=== PATIENT | male | born 1955 | race Caucasian/White ===

== ENCOUNTER 2018-05-18 21:15 | Emergency (ER) | payer MEDICAID, OTHER ==
[~2018-05-18] VITALS: Ht 182.9 cm; Wt 73.0 kg
[2018-05-18 21:26] VITALS: BP 140/77
--- NOTE | 2018-05-18 21:31 | NUR ---
BIB FAMILY. COMP OF "HAVING L SIDE FACE PAIN, FELT LIKE MY EAR WAS WET, THEN THE PAIN GOT WORSE FROM THE L SIDE OF MY NECK AND MOVED TOWARDS MY EYES" -NEURO, -SOB, -DIZZINESS, -ACUTE DISTRESS.
== END 2018-05-18 22:57 | disposition home or self-care (01) ==
LOC: ER 21:20
DX: H60.92 Unspecified otitis externa, left ear (principal); E78.00 Pure hypercholesterolemia, unspecified; F17.200 Nicotine dependence, unspecified, uncomplicated

== ENCOUNTER 2018-09-17 23:51 | Emergency (ER) | payer MEDICAID, OTHER ==
[~2018-09-17] VITALS: Ht 172.7 cm; Wt 76.2 kg
[2018-09-17 23:57] VITALS: BP 143/72
--- NOTE | 2018-09-18 00:10 | NUR ---
PT BIBF. C/O "HAVING SORE THROAT, COUGH X2 DAYS" -SOB AOX4. AMBULATORY VSS
== END 2018-09-18 00:53 | disposition home or self-care (01) ==
LOC: ER 23:55
DX: J06.9 Acute upper respiratory infection, unspecified (principal); F17.200 Nicotine dependence, unspecified, uncomplicated; Z90.89 Acquired absence of other organs